=== PATIENT | female | born 1935 | race Caucasian/White ===

== ENCOUNTER → 2017-03-25 | Outpatient (CLI) | payer MEDICARE, MEDICAID ==
[~2017-03-25] MED LIST: CHLO50TA22 PO; DICY20TA10 PO; FLAX100011 PO; HCT25T PO; LSNP20T PO; METF-380 PO; OMEG1CAP PO; REGADENOSON 0.4 MG/5 ML SYR (LEXISCAN) IV ONE
[2017-03-25] MEDS: CATHETER FLUSH 10 ML SYR IV PRN ×2 (07:26→07:58)
[2017-03-25 09:23] VITALS: BP 146/52
[2017-03-25 09:26] VITALS: BP 125/63
[2017-03-25 09:28] VITALS: BP 128/58
--- NOTE | 2017-03-25 17:03 | STRESS TEST ---
PROCEDURE PHYSICIAN: ALEXI RASHID DATE OF PROCEDURE: 03/25/2017 LEXISCAN MYOVIEW STRESS TEST REPORT: REFERRING PHYSICIAN: Dr. Emmy Jalloh BASELINE HEART RATE: 79 BASELINE BLOOD PRESSURE: 140/64 BASELINE EKG: Sinus rhythm with left bundle-branch block. IN SUMMARY: The patient was injected with 10.83 mCi of technetium 99 Myoview and the resting images were obtained. Then the patient received 0.4 mg of Lexiscan followed by 31.6 mCi of technetium 99 Myoview. Throughout the test, there were no EKG changes. Resting and stress images were reviewed and compared in the short axis, horizontal long axis, and vertical long axis views. Review of the images showed breast attenuation affecting the quality of the images. Overall, there is no significant ischemia or infarction. SSS 5, SDS 5, TID value 1.08. On the gated images, the left ventricle appeared to be normal size with normal contractility. Mild hypokinesia of the septum due to bundle branch block. Calculated ejection fraction 63%. IN CONCLUSION: 1. The patient tolerated Lexiscan well. 2. Breast attenuation affecting the quality of the images. Overall, there is no significant ischemia or infarction on SPECT images. 3. Normal left ventricular size with mild hypokinesia at the true septum and anterior septum due to bundle branch block with calculated ejection fraction 63%. Job ID: [id number] Dictated Date: 03/25/2017 14:13:50 [employer] Support Worker Date: 03/25/2017 16:59:07 / [email or web address]
== END ==
LOC: CARD 06:59
PROVIDERS: ATTEND Internal Medicine Cardiovascular Disease
DX: I10 Essential (primary) hypertension (principal); E78.5 Hyperlipidemia, unspecified; I73.9 Peripheral vascular disease, unspecified; R53.83 Other fatigue
CPT/HCPCS: 78452; 93017